=== PATIENT | female | born 1985 | race Caucasian/White ===

== ENCOUNTER 2018-02-13 12:58 | Emergency (ER) ==
[2018-02-13 13:14] VITALS: BP 148/95; TEMP 98.3; BMI 25.4
[2018-02-13] MEDS: LIDOCAINE HCL 1% SDV SUBCUT STA (13:44)
--- NOTE | 2018-02-13 14:12 | ED.PDOC ---
General ED Provider: Dr. AUGUSTUS CHILDS Chief Complaint: Head Laceration Stated Complaint: head laceration Time Seen by Physician: 13:00 (see photos no headache no neck pain no L.O.C.) Mode of Arrival: Walk-In Information Source: Patient Nursing and Triage Documentation Reviewed and Agree: Yes Does patient meet sepsis criteria?: No If yes, has appropriate treatment been initiated?: No System Inflammatory Response Syndrome: Not Applicable Sepsis Protocol: For patient's 13 years and over: Temp is 96.8 and below OR 101 and greater Pulse >90 BPM Resp >20/minute Acutely Altered Mental Status Are patient's symptoms suggestive of a new infection, such as: -Pneumonia -Skin, Soft Tissue -Endocarditis -UTI -Bone, Joint Infection -Implantable Device -Acute Abdominal Infection -Wound Infection -Meningitis -Blood Stream Catheter Infection -Unknown Skin Complaint Exam - Laceration/Head/Facial Complaint/Exam Location of Injury: Forehead Mechanism of Injury: Laceration Symptoms Are: Still present Initial Severity: Mild Current Severity: Mild Aggravating: None Alleviating: None Associated Signs and Symptoms: Denies: Fever, Chills, Erythema, Numbness, Tingling Related History: Reports: Anticoagulant use Differential Diagnoses: Laceration Review of Systems - Review Of Systems Constitutional: Reports: No symptoms Eyes: Reports: No symptoms Ears, Nose, Mouth, Throat: Reports: No symptoms Respiratory: Reports: No symptoms Cardiac: Reports: No symptoms GI: Reports: No symptoms : Reports: No symptoms Musculoskeletal: Reports: No symptoms Skin: Reports: No symptoms Neurological: Reports: Other (laceration) Endocrine: Reports: No symptoms Hematologic/Lymphatic: Reports: No symptoms All Other Systems: Reviewed and Negative Past Medical History - Past Medical History Previously Healthy: Yes Endocrine: Reports: None Cardiovascular: Reports: None Respiratory: Reports: None Hematological: Reports: None Gastrointestinal: Reports: None Genitourinary: Reports: None Neuro/Psych: Reports: None Musculoskeletal: Reports: None Cancer: Reports: None Last Menstrual Period: 01/29/18 - Surgical History General Surgical History: Reports: None - Family History Family History: Reports: None - Social History Smoking Status: Never smoker Hx Substance Use: No Alcohol Screening: Occasionally - Immunizations Tetanus Shot up to Date: Yes Physical Exam - Physical Exam Appearance: Well-appearing, No pain distress, Well-nourished Eyes: SEE, EOMI, Conjunctiva clear ENT: Ears normal, Nose normal, Oropharynx normal Respiratory: Airway patent, Breath sounds clear, Breath sounds equal, Respirations nonlabored Cardiovascular: RRR, Pulses normal, No rub, No murmur GI/: Soft, Nontender, No masses, Bowel sounds normal, No Organomegaly Musculoskeletal: Normal strength, ROM intact, No edema, No calf tenderness Skin: Warm, Dry, Normal color Neurological: Sensation intact, Motor intact, Reflexes intact, Cranial nerves intact, Alert, Oriented Psychiatric: Affect appropriate, Mood appropriate Procedures - Laceration/Wound Repair No standard instances Wound Description: Linear Wound Length (cm): 1cm Wound Width: 2mm Wound Depth: 2mm Wound Explored: Clean Wound Irrigated: No Wound Prep: Saline, Hibiclens Anesthesia: Lidocaine (1ml) Undermining: Minimal Wound Margins: Revised, Vermilion border aligned Wound Repaired With: Sutures Suture Size and Type: 4 prolene Number of Sutures: 6 Number of Sho[place]: 0 Layer Closure?: No Critical Care Note - Critical Care Note Total Time (mins): 0 Course - Course Orders, Labs, Meds: Orders Category Date Time Status Lidocaine HCl/Pf [Lidocaine HCl 1% Sdv] MEDS 02/13/18 13:10 Stat 5 ml SUBCUT ONCE STA Medications Discontinued Medications Generic Name Dose Route Start Last Admin Trade Name Vin PRN Reason Stop Dose Admin Lidocaine HCl 5 ml 02/13/18 13:10 02/13/18 13:44 Lidocaine Hcl 1% Sdv SUBCUT 02/13/18 13:11 5 ml ONCE STA Administration Vital Signs: Temp Pulse Resp BP Pulse Ox 02/13/18 12:59 98.3 F 115 H 18 148/95 H 97 Departure - Departure Time of Disposition: 14:12 Disposition: HOME SELF-CARE Discharge Problem: Laceration Instructions: Laceration (ED) Condition: Good Pt referred to PMD for follow-up: Yes IPMP verified?: No Additional Instructions: Please call your Family Physician as soon as possible to schedule a follow-up appointment. Allergies/Adverse Reactions: Allergies Cephalosporins Adverse Reaction (Verified 02/13/18 13:05) Penicillins Adverse Reaction (Verified 02/13/18 13:05) Home Medications: Ambulatory Orders 1 [No Reported Medications] 02/13/18
== END 2018-02-13 14:19 | disposition home or self-care (01) ==
LOC: ED 12:58
DX: S01.81XA Laceration without foreign body of other part of head, initial encounter (principal); W22.8XXA Striking against or struck by other objects, initial encounter
CPT/HCPCS: 99282